=== PATIENT | male | born 1960 | race Caucasian/White ===

== ENCOUNTER → 2019-10-06 | Outpatient (CLI) | payer BC ==
[2019-10-07 00:26] LABS: Scallop IgE <0.10 kU/L; Walnut IgE (Food) <0.10 kU/L
[2019-10-07 00:27] LABS: Clam IgE <0.10 kU/L; Shrimp IgE <0.10 kU/L; Soybean IgE <0.10 kU/L
[2019-10-07 00:28] LABS: Codfish IgE <0.10 kU/L; Egg White IgE <0.10 kU/L; Peanut IgE <0.10 kU/L
[2019-10-08 11:56] LABS: Chocolate IgE Class CLASS 0; Latex IgE Class CLASS 0; Yeast Bakers/Brew IgE <0.10 kU/L (<0.10)
[2019-10-12 20:15] LABS: Chocolate IgG 3.4 mcg/mL (< 2.0); Peanut IgG <2.0 mcg/mL (< 2.0); Soybean IgG <2.0 mcg/mL (< 2.0)
[2019-10-12 20:16] LABS: Cow's Milk IgG 45.5 mcg/mL (< 2.0); Tomato IgG 3.9 mcg/mL (< 2.0)
[2019-10-12 20:17] LABS: Corn IgG 6.7 mcg/mL (< 2.0); Potato IgG <2.0 mcg/mL (< 2.0)
[2019-10-15 12:01] LABS: Potato IgE <0.10 kU/L (<0.10); Potato IgE Class CLASS 0
== END | disposition home or self-care (01) ==
LOC: LABWHC1 15:06
PROVIDERS: ATTEND Otolaryngology
DX: L50.0 Allergic urticaria (principal)
CPT/HCPCS: 36415; 82785; 86001; 86003

== ENCOUNTER → 2020-06-14 | Outpatient (CLI) | payer BC ==
--- NOTE | 2020-06-14 10:50 | CT ---
EXAMINATION TYPE: CT abdomen pelvis w con DATE OF EXAM: 06/14/2020 COMPARISON: CT abdomen pelvis 02/10/2016 HISTORY: LLQ and left testicular pain CT DLP: 523.3 mGycm Automated exposure control for dose reduction was used. TECHNIQUE: Helical acquisition of images was performed from the lung bases through the pelvis. CONTRAST: Performed without Oral Contrast and with IV Contrast, patient injected with 100 mL of Isovue 300. FINDINGS: LUNG BASES: 3 mm perifissural lymph node of the right lower lobe. LIVER: Normal. BILIARY SYSTEM: Normal. PANCREAS: Normal. Small focus of redemonstrated invaginated fat (Hounsfield units -32) is seen near t he uncinate process (3:30), not to be confused with pancreatic lesion. SPLEEN: Normal. ADRENALS: Normal. KIDNEYS: Left 1.7 cm peripelvic simple cyst. Kidneys are otherwise normal. BOWEL: No obstruction or thickening. There is colonic diverticulosis. No acute diverticulosis. PERITONEUM: No free air is visualized. No free fluid. Tiny fat-containing left inguinal hernia. ADENOPATHY: No lymphadenopathy. PELVIS: Underdistended urinary bladder. Normal prostate. VASCULATURE: No abdominal aortic aneurysm. MUSCULOSKELETAL: No acute osseous abnormality. Limbus vertebrae of L5. IMPRESSION: 1. No acute process to explain patient's left lower quadrant pain. 2. Colonic diverticulosis. No acute diverticulitis. 3. Testicles not visualized on CT examination. If patient complains of testicular pain, consider ded icated testicular ultrasound.
== END | disposition home or self-care (01) ==
LOC: RADCTMAIN 07:43
PROVIDERS: ATTEND Student in an Organized Health Care Education/Training Program
DX: K57.30 Diverticulosis of large intestine without perforation or abscess without bleeding (principal); N50.812 Left testicular pain
CPT/HCPCS: 74177; Q9967